=== PATIENT | female | born 1960 | race African-American/Black ===

== ENCOUNTER → 2021-05-05 | Day surgery (SDC) | payer OTHER ==
[~2021-05-05] VITALS: Ht 177.8 cm; Wt 104.3 kg
[~2021-05-05] MED LIST: ACETAMINOPHEN500 M1 PO; COLACE100 MG PO; METOPROLOL SUCC25 MG PO; MOTRIN600 MG PO; OXY-IR 5MG5 MG PO; PRILOSEC20 MG PO; SYNTHROID150 MCG PO; TRIAMTERENE-HC1 EAC1 PO; VITAMIN D350 MC4 PO; [UNRECOGNIZED DRUG - OTHER] PO
== END | disposition home or self-care (01) ==
LOC: FAS 05-03 09:00
DX: K43.0 Incisional hernia with obstruction, without gangrene (principal); I10 Essential (primary) hypertension; F41.9 Anxiety disorder, unspecified; M19.90 Unspecified osteoarthritis, unspecified site; G89.29 Other chronic pain; R10.13 Epigastric pain; K59.04 Chronic idiopathic constipation; E78.00 Pure hypercholesterolemia, unspecified; Z90.49 Acquired absence of other specified parts of digestive tract; Z90.710 Acquired absence of both cervix and uterus; Z98.51 Tubal ligation status; Z72.89 Other problems related to lifestyle; Z79.82 Long term (current) use of aspirin; Z79.899 Other long term (current) drug therapy; Z88.5 Allergy status to narcotic agent; Z88.8 Allergy status to other drugs, medicaments and biological substances; Z80.0 Family history of malignant neoplasm of digestive organs; Z80.3 Family history of malignant neoplasm of breast; Z80.1 Family history of malignant neoplasm of trachea, bronchus and lung
CPT/HCPCS: 93005; J0690; J1100; J1644; J2250; J2405; J2704; J2710; J3010; J7120

== ENCOUNTER → 2021-09-13 | Day surgery (SDC) | payer OTHER ==
[~2021-09-13] VITALS: Ht 177.8 cm; Wt 106.6 kg
[2021-09-13 12:40] LABS: BUN/CREAT RATIO (CALC) 16.3 RATIO; CREATININE 0.98 mg/dL (0.51-0.95)
== END | disposition home or self-care (01) ==
LOC: FAS 10:00
PROVIDERS: Student in an Organized Health Care Education/Training Program
DX: K43.0 Incisional hernia with obstruction, without gangrene (principal); K66.0 Peritoneal adhesions (postprocedural) (postinfection); I10 Essential (primary) hypertension; E03.9 Hypothyroidism, unspecified; Z90.49 Acquired absence of other specified parts of digestive tract; Z88.8 Allergy status to other drugs, medicaments and biological substances; Z79.82 Long term (current) use of aspirin; Z90.710 Acquired absence of both cervix and uterus; Z98.51 Tubal ligation status; Z80.0 Family history of malignant neoplasm of digestive organs; Z72.89 Other problems related to lifestyle
CPT/HCPCS: 36415; 80048; 93005; C1781; J0690; J1100; J1644; J2250; J2405; J2704; J2710; J7120

== ENCOUNTER 2022-03-22 19:20 | Emergency (ER) | payer OTHER ==
[2022-03-22 19:57] LABS: BASOPHIL 0.5 % (0-2); HCT 42.1 % (37.0-47.0); HGB 14.1 g/dl (12.5-16.0); LYMPHOCYTE 33.3 % (15-48); MCH 30.4 pg (25.0-31.0); MCHC 33.5 g/dL (32.0-36.0); MCV 90.7 fL (78.0-100.0); MONOCYTE 8.9 % (0-12); MPV 10.4 fL (6.0-9.5); NEUTROPHIL 54.9 % (41-80); NRBC 0; PLT 224 K/uL (150-400); RBC 4.64 M/uL (4.20-5.40); RDW 13.2 % (11.5-14.0); WBC 8.1 K/uL (4.0-10.5)
[2022-03-22 20:30] LABS: ALBUMIN 3.5 g/dL (3.4-5.0); BILIRUBIN - TOTAL 0.4 mg/dL (0.2-1.0); BUN/CREAT RATIO (CALC) 12.4 RATIO; CREATININE 1.05 mg/dL (0.51-0.95); GLOBULIN (CALCULATION) 3.6 g/dL; POTASSIUM 3.4 mmol/L (3.5-5.1); TOTAL PROTEIN 7.1 g/dL (6.4-8.2)
[2022-03-22 20:44] LABS: CORONAVIRUS 2019 SARS-COV-2 NEGATIVE (NEGATIVE); INFLUENZA A NAA NEGATIVE (NEGATIVE)
== END 2022-03-23 00:13 | disposition home or self-care (01) ==
LOC: FER 19:20
PROVIDERS: Internal Medicine
DX: R07.89 Other chest pain (principal); R91.1 Solitary pulmonary nodule; I10 Essential (primary) hypertension; E03.9 Hypothyroidism, unspecified; Z88.6 Allergy status to analgesic agent; Z79.899 Other long term (current) drug therapy; Z79.890 Hormone replacement therapy; Z20.822 Contact with and (suspected) exposure to COVID-19
CPT/HCPCS: 36415; 71275; 80053; 84484; 85025; 93005; Q9967; U0002